=== PATIENT | male | born 1960 | race Caucasian/White ===

== ENCOUNTER 2017-03-04 14:20 | Emergency (ER) | payer BC ==
[~2017-03-04] VITALS: Ht 182.9 cm; Wt 89.8 kg
[2017-03-04 14:34] VITALS: BP 135/82; PULSE 104; RESP 16; TEMP 98.6; O2SAT 97
--- NOTE | 2017-03-04 14:48 | NUR ---
Patient to ER bed 8 to gown for evaluation. Side rails up. Received report from GARTH Dominguez
--- NOTE | 2017-03-04 14:49 | NUR ---
Pt presents to ED with a cat bite to [facility]. Area is red and swollen. Pt reports that his cat bit him 2 days ago. Today when he awoke, he noticed the area looks "infected". Pt reports pain to [facility] at 4/10 and tolerable. Pt denies taking any medication at home
--- NOTE | 2017-03-04 14:50 | NUR ---
ER at bedside examining patient.
[2017-03-04] MEDS ORDERED: AMOXICILLIN/CLAVULANATE POTASSIUM 875 MG TABLET PO ONE (15:00)
--- NOTE | 2017-03-04 15:08 | NUR ---
Patient given written and verbal discharge instructions and verbalizes understanding. ER MD discussed with patient the results and treatment provided. ID arm band removed. Rx of Augmentin given. Patient educated on pain management and to follow up with PMD. Pain Scale 3/10 and tolerable. Opportunity for questions provided and answered.
[2017-03-04 15:10] VITALS: BP 135/82; PULSE 104; RESP 16; TEMP 98.6; O2SAT 97
== END 2017-03-04 15:09 | disposition home or self-care (01) ==
LOC: SED 14:20
DX: S51.852A Open bite of left forearm, initial encounter (principal); W55.01XA Bitten by cat, initial encounter; Y93.89 Activity, other specified; Y92.89 Other specified places as the place of occurrence of the external cause; Y99.8 Other external cause status
CPT/HCPCS: 99283